=== PATIENT | female | born 1985 | race Hispanic/Latino ===

== ENCOUNTER 2017-05-24 23:53 | Emergency (ER) | payer SELFPAY ==
[2017-05-25] MEDS ORDERED: METHYLPREDNISOLONE 125 MG INJ ONE (00:53)
[2017-05-25] MEDS ORDERED: FAMOTIDINE 20 MG/2 ML VIAL IV ONE (00:54)
[2017-05-25] MEDS ORDERED: DIPHENHYDRAMINE 50 MG/ML VIAL ONE (00:54)
--- NOTE | 2017-05-25 01:37 | EDPHYS ---
Physician Documentation [facility] Name: Kristy Amor Age: 31 yrs Sex: Female : 1985 Arrival Date: 05/24/2017 Time: 23:57 Bed 7 Private MD: ED Physician Reji Sena HPI: 05/25 01:30 This 31 yrs old Female presents to ER via Ambulatory with complaints of jr8 Allergic Reaction. 01:30 The patient presents with itching, rash. Onset: The symptoms/episode began/occurred jr8 acutely, today. Associated signs and symptoms: The patient has no apparent associated signs or symptoms. Possible causes: antibiotics, penicillin. At home the patient or guardian has treated the symptoms with Benadryl. Severity of symptoms: At their worst the symptoms were mild in the emergency department the symptoms are unchanged. The patient has not experienced similar symptoms in the past. The patient has not recently seen a physician. Patient stated that she was started on PCN two days ago for infection. Stated that today started to have rash on neck and chest along with had that was itching. 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 - Social history:: Smoking status: Patient/guardian denies using tobacco, never smoked. ROS: 01:30 Eyes: Negative for injury, pain, redness, and discharge, ENT: Negative for injury, jr8 pain, and discharge, Neck: Negative for injury, pain, and swelling, Cardiovascular: Negative for chest pain, palpitations, and edema, Respiratory: Negative for shortness of breath, cough, wheezing, and pleuritic chest pain, Abdomen/GI: Negative for abdominal pain, nausea, vomiting, diarrhea, and constipation, Back: Negative for injury and pain, MS/Extremity: Negative for injury and deformity, Neuro: Negative for headache, weakness, numbness, tingling, and seizure. 01:30 Skin: Positive for rash. Exam: 01:30 Eyes: Pupils equal round and reactive to light, extra-ocular motions intact. Lids and jr8 lashes normal. Conjunctiva and sclera are non-icteric and not injected. Cornea within normal limits. Periorbital areas with no swelling, redness, or edema. ENT: Nares patent. No nasal discharge, no septal abnormalities noted. Tympanic membranes are normal and external auditory canals are clear. Oropharynx with no redness, swelling, or masses, exudates, or evidence of obstruction, uvula midline. Mucous membranes moist. Neck: Trachea midline, no thyromegaly or masses palpated, and no cervical lymphadenopathy. Supple, full range of motion without nuchal rigidity, or vertebral point tenderness. No Meningismus. Cardiovascular: Regular rate and rhythm with a normal S1 and S2. No gallops, murmurs, or rubs. Normal PMI, no JVD. No pulse deficits. Respiratory: Lungs have equal breath sounds bilaterally, clear to auscultation and percussion. No rales, rhonchi or wheezes noted. No increased work of breathing, no retractions or nasal flaring. Abdomen/GI: Soft, non-tender, with normal bowel sounds. No distension or tympany. No guarding or rebound. No evidence of tenderness throughout. Back: No spinal tenderness. No costovertebral tenderness. Full range of motion. MS/ Extremity: Pulses equal, no cyanosis. Neurovascular intact. Full, normal range of motion. Neuro: Awake and alert, GCS 15, oriented to person, place, time, and situation. Cranial nerves II-XII grossly intact. Motor strength 5/5 in all extremities. Sensory grossly intact. Cerebellar exam normal. Normal gait. 01:30 Skin: rash a mild rash is noted, rash can be described as urticarial, on the chest and neck. Vital Signs: 00:06 BP 116 / 76; Pulse 60; Resp 17; Temp 97.4; Pulse Ox 100% ; Weight 63.5 kg; Height 5 ft. tl1 0 in. (152.40 cm); Pain 0/10; 01:07 BP 122 / 88; Pulse 62; Resp 14; Pulse Ox 100% ; Pain 0/10; ao 00:06 Body Mass Index 27.34 (63.50 kg, 152.40 cm) tl1 MDM: 00:11 Patient medically screened. jr8 01:30 Data reviewed: vital signs, nurses notes, and as a result, I will discharge patient. jr8 Data interpreted: Pulse oximetry: on room air is 100 %. Interpretation: normal. Counseling: I had a detailed discussion with the patient and/or guardian regarding: the historical points, exam findings, and any diagnostic results supporting the discharge/admit diagnosis, the need for outpatient follow up, a family practitioner, to return to the emergency department if symptoms worsen or persist or if there are any questions or concerns that arise at home. Response to treatment: the patient's symptoms have markedly improved after treatment. ED course: Discussed with patient to stop PCN. Will put her on something different. Will send home on steroids. Benadryl as needed for rash and itching. To f/u with 48 hours to insure getting better. If worse to come back to ED . 05/25 00:56 Order name: Urine Dipstick--Ancillary (enter results) em1 05/25 00:56 Order name: Urine --Ancillary (enter results) em1 05/25 00:30 Order name: IV; Complete Time: 00:53 jr8 Administered Medications: 00:52 Drug: SOLU-Medrol 125 mg Route: IVP; Site: right antecubital; ao 02:04 Follow up: Response: No adverse reaction ao 00:52 Drug: Pepcid 20 mg Route: IVP; Site: right antecubital; ao 02:03 Follow up: Response: No adverse reaction ao 00:52 Drug: Benadryl 25 mg Route: IVP; Site: right antecubital; ao 02:03 Follow up: Response: No adverse reaction; Other; Rushes apear to be less ao Disposition: 07:19 Co-signature as Attending Physician, Reji Sena MD I agree with the assessment and kevin plan of care. Disposition: 05/25/17 01:36 Discharged to Home. Impression: Allergic Reaction. - Condition is Stable. - Discharge Instructions: Anaphylactic Reaction. - Prescriptions for Zithromax Z- Xu 250 mg Oral Tablet - take 1 tablet by ORAL route as directed for 5 days Day 1 - take two (2) tablets one time. Day 2, 3, 4 , 5 take one (1) tablet once daily.; 6 tablet. Prednisone 20 mg Oral Tablet - take 2 tablet by ORAL route once daily for 5 days; 10 tablet. - Medication Reconciliation Form, Thank You Letter, Antibiotic Education, Prescription Opioid Use, Work release form form. - Follow up: Private Physician; When: 1 - 2 days; Reason: Recheck today's complaints, Continuance of care, Re-evaluation by your physician. - Problem is new. - Symptoms have improved. Signatures: Dispatcher [employer] EDReji Hanson MD MD cha Roszak, Josh, PA PA jr8 Leslie Parrish RN RN tl1 Manjeet Joe RN RN ao
--- NOTE | 2017-05-25 01:37 | ER ---
Nurse's Notes [facility] Name: Kristy Amor Age: 31 yrs Sex: Female : 1985 Arrival Date: 05/24/2017 Time: 23:57 Bed 7 Private MD: Diagnosis: Allergic Reaction Presentation: 05/25 00:02 Presenting complaint: Patient states: I have had a cold since Tuesday and have been tl1 taking over the counter medications. yesterday I started taking amoxicillin I bought in [place]. Tonight I started getting a rash on my neck and my throat got real scratchy. Transition of care: patient was not received from another setting of care. Onset: The symptoms/episode began/occurred gradually. Anaphylaxis evaluation, no signs or symptoms of anaphylaxis were noted. Onset of symptoms was May 25, 2017. Care prior to arrival: Medication(s) given: benadryl 50mg. 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 - Social history:: Smoking status: Patient/guardian denies using tobacco, never smoked. Screenin:01 Abuse screen: Denies threats or abuse. Denies injuries from another. Nutritional ao screening: No deficits noted. Tuberculosis screening: No symptoms or risk factors identified. Fall Risk None identified. Assessment: 00:15 General: Appears in no apparent distress. comfortable, Behavior is calm, cooperative, ao appropriate for age. Pain: Denies pain. Neuro: Level of Consciousness is awake, alert, obeys commands, Oriented to person, place, time, situation, Appropriate for age Moves all extremities. Speech is normal, Facial symmetry appears normal, Pupils are PERRLA. Cardiovascular: Reports shortness of breath, Denies chest pain, lightheadedness, Heart tones S1 S2 Capillary refill < 3 seconds Patient's skin is warm and dry. Respiratory: Airway is patent Trachea midline Respiratory effort is even, unlabored, Respiratory pattern is regular, symmetrical, Breath sounds are clear bilaterally. GI: No signs and/or symptoms were reported involving the gastrointestinal system. Abdomen is flat. : No signs and/or symptoms were reported regarding the genitourinary system. EENT: No signs and/or symptoms were reported regarding the EENT system. Derm: No signs and/or symptoms reported regarding the dermatologic system. Musculoskeletal: No signs and/or symptoms reported regarding the musculoskeletal system. 01:07 Reassessment: Patient appears in no apparent distress at this time. Patient and/or ao family updated on plan of care and expected duration. Pain level reassessed. Patient is alert, oriented x 3, equal unlabored respirations, skin warm/dry/pink. Patient is been monitor. Patient shows no SS of distress at this moment. Vital Signs: 00:06 BP 116 / 76; Pulse 60; Resp 17; Temp 97.4; Pulse Ox 100% ; Weight 63.5 kg; Height 5 ft. tl1 0 in. (152.40 cm); Pain 0/10; 01:07 BP 122 / 88; Pulse 62; Resp 14; Pulse Ox 100% ; Pain 0/10; ao 00:06 Body Mass Index 27.34 (63.50 kg, 152.40 cm) tl1 ED Course: 05/24 23:57 Patient arrived in ED. es 03 00:05 Triage completed. tl1 00:07 Arm band placed on right wrist. tl1 00:11 Carlos Akhtar PA is PHCP. jr8 00:11 Reji Sena MD is Attending Physician. jr8 00:15 Manjeet Joe, BEATRIZ is Primary Nurse. ao 00:40 Inserted saline lock: 22 gauge in right antecubital area, using aseptic technique. ao 02:02 Patient has correct armband on for positive identification. Pulse ox on. NIBP on. ao 02:02 No provider procedures requiring assistance completed. IV discontinued, intact, ao bleeding controlled, No redness/swelling at site. Pressure dressing applied. 02:04 Urine Dipstick--Ancillary (enter results) Sent. ao 02:04 Urine --Ancillary (enter results) Sent. ao Administered Medications: 00:52 Drug: SOLU-Medrol 125 mg Route: IVP; Site: right antecubital; ao 02:04 Follow up: Response: No adverse reaction ao 00:52 Drug: Pepcid 20 mg Route: IVP; Site: right antecubital; ao 02:03 Follow up: Response: No adverse reaction ao 00:52 Drug: Benadryl 25 mg Route: IVP; Site: right antecubital; ao 02:03 Follow up: Response: No adverse reaction; Other; Rushes apear to be less ao Outcome: 01:36 Discharge ordered by MD. joshi 02:02 Discharged to home ambulatory. ao 02:02 Condition: stable 02:02 Discharge instructions given to patient, Instructed on discharge instructions, follow up and referral plans. Demonstrated understanding of instructions, follow-up care, medications, Prescriptions given X 2. 02:03 Patient left the ED. ao Signatures: Jenny Roque Josh, PA PA jr8 Leslie Parrish RN RN tl1 Manjeet Joe RN RN ao
[2017-05-25 02:11] VITALS: TEMP 97.4; O2SAT 100
[2017-05-25 02:12] VITALS: BP 122/88
[2017-05-25 02:51] LABS: Urine Blood NEGATIVE (NEG); Urine Glucose NEGATIVE (NEG); Urine Protein NEGATIVE (NEG); Urine pH 6.5 (5.0-7.0)
== END 2017-05-25 02:03 | disposition home or self-care (01) ==
LOC: ER 23:53
DX: R21 Rash and other nonspecific skin eruption (principal)
CPT/HCPCS: 81003; 81025; 96374; 96375; 99284; J2930

== ENCOUNTER 2017-11-16 21:59 | Emergency (ER) | payer SELFPAY ==
[2017-11-17] MEDS ORDERED: ONDANSETRON 4 MG/2 ML VIAL ONE (00:31)
[2017-11-17] MEDS ORDERED: MORPHINE 4 MG/ML SYR ONE (00:31)
[2017-11-17 00:34] LABS: Absolute Monocytes 0.5 K/uL (0.1-1.3); Absolute Neutrophil 8.4 K/uL (1.8-8.0); Basophils % 0.7 % (0-1.3); Eosinophils % 0.5 % (0-4.4); Hematocrit 43.2 % (36.0-45.0); Lymphocytes % 24.8 % (15.3-44.8); MCH 34.1 pg (27.0-35.0); MCV 96.1 fL (80-100); MPV 10.2 fL (7.6-11.3); Monocytes % 4.4 % (3.3-12.3)
[2017-11-17] MEDS ORDERED: MEPERIDINE HCL 50 MG/ML AMP ONE ×2 (01:08→02:13)
[2017-11-17 01:26] LABS: Blood Morphology Comment NOT SEEN (NOT SEEN); Platelet Estimate ADEQ; Urine White Blood Cell Casts OK
[2017-11-17 01:53] LABS: Urine Blood NEGATIVE (NEG); Urine Glucose NEGATIVE (NEG); Urine Protein NEGATIVE (NEG); Urine Specific Gravity 1.025 (1.005-1.030); Urine pH 6.5 (5.0-7.0)
--- NOTE | 2017-11-17 03:42 | ER ---
Nurse's Notes [facility] Name: Kristy Amor Age: 32 yrs Sex: Female : 1985 Arrival Date: 11/16/2017 Time: 22:04 Bed 15 Private MD: Diagnosis: Abdominal and pelvic pain Presentation: 11/16 22:12 Presenting complaint: Patient states: she is nauseous and has been vomiting the last bb couple of hours with sharp pain in her back pt states she has had pancreatitis in the past but this is different. Transition of care: patient was not received from another setting of care. Onset of symptoms was November 16, 2017. Risk Assessment: Do you want to hurt yourself or someone else? Patient reports no desire to harm self or others. Initial Sepsis Screen: Does the patient meet any 2 criteria? No. Patient's initial sepsis screen is negative. Does the patient have a suspected source of infection? No. Patient's initial sepsis screen is negative. Care prior to arrival: None. 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 - Social history:: Smoking status: Patient uses tobacco products, denies chronic smoking, but will smoke occasionally, Patient uses alcohol, occasionally. Patient/guardian denies using street drugs. - Ebola Screening: : No symptoms or risks identified at this time. Screenin:38 Abuse screen: Denies threats or abuse. Nutritional screening: No deficits noted. jd3 Tuberculosis screening: No symptoms or risk factors identified. Fall Risk Ambulatory Aid- None/Bed Rest/Nurse Assist (0 pts). Gait- Normal/Bed Rest/Wheelchair (0 pts) Mental Status- Oriented to own ability (0 pts). Total Mena Fall Scale indicates No Risk (0-24 pts). Assessment: 22:34 General: Appears uncomfortable, Behavior is calm, cooperative, appropriate for age. jd3 Pain: Complains of pain in back Quality of pain is described as sharp. Neuro: Level of Consciousness is awake, alert, obeys commands, Oriented to person, place, time, situation. Cardiovascular: Heart tones S1 S2 present Capillary refill < 3 seconds Patient's skin is warm and dry. Respiratory: Reports pain with respiration Airway is patent Respiratory effort is even, unlabored, Respiratory pattern is regular, symmetrical, Breath sounds are clear bilaterally. GI: Abdomen is round non-distended, Bowel sounds present X 4 quads. Abd is soft and non tender X 4 quads. Reports nausea, vomiting, Patient currently denies constipation, diarrhea. : No signs and/or symptoms were reported regarding the genitourinary system. EENT: No signs and/or symptoms were reported regarding the EENT system. Derm: Skin is intact, Skin is dry, Skin is normal, Skin temperature is warm. Musculoskeletal: Circulation, motion, and sensation intact. Range of motion: intact in all extremities. 23:32 Reassessment: Pt complaining of nausea and pain, provider notified, see MAR for orders. jb4 11/17 00:37 Reassessment: Patient is alert, oriented x 3, equal unlabored respirations, skin lp1 warm/dry/pink. Reassessment: Patient aware of pending lab results. General: Appears in no apparent distress. 00:50 Reassessment: Pt complaining of sharp abdominal pain provider notified, see MAR for jb4 orders. 01:49 Reassessment: Pt complaining of sharp abdominal pain. Provider notified, see MAR for jb4 order.s. 02:18 Reassessment: taken to CT. jb4 02:33 Reassessment: Pt is back from CT. jb4 03:18 Reassessment: Patient appears in no apparent distress at this time. Patient and/or jb4 family updated on plan of care and expected duration. Pain level reassessed. Pt resting comfortably in bed with no s/s of distress. 04:12 Reassessment: Patient appears in no apparent distress at this time. Patient and/or jb4 family updated on plan of care and expected duration. Pain level reassessed. Patient is alert, oriented x 3, equal unlabored respirations, skin warm/dry/pink. D/c \T\ F/u to pt, denies question or concerns. Vital Signs: 11/16 22:13 BP 121 / 80; Pulse 67; Resp 16 S; Temp 98.6(O); Pulse Ox 99% on R/A; Weight 64.86 kg bb (R); Height 5 ft. 0 in. (152.40 cm) (R); Pain 7/10; 11/17 00:00 BP 110 / 79; Pulse 74; Resp 16; Pulse Ox 98% on R/A; lp1 01:06 BP 118 / 83; Pulse 85; Resp 18; Pulse Ox 100% on R/A; jb4 02:00 BP 115 / 78; Pulse 79; Resp 18; Pulse Ox 100% on R/A; jb4 03:00 BP 104 / 80; Pulse 63; Resp 18; Pulse Ox 98% on R/A; jb4 03:45 BP 103 / 67; Pulse 57; Resp 18; Pulse Ox 98% on R/A; jb4 11/16 22:13 Body Mass Index 27.93 (64.86 kg, 152.40 cm) bb ED Course: 11/16 22:04 Patient arrived in ED. es 22:13 Triage completed. bb 22:13 Arm band placed on Patient placed in an exam room, on a stretcher, on pulse oximetry. bb 22:13 Pulse ox on. NIBP on. jb4 22:38 Patient has correct armband on for positive identification. Bed in low position. Call jd3 light in reach. Side rails up X 1. Adult w/ patient. 22:52 Carlos Akhtar PA is PHCP. jr8 22:52 Reji Sena MD is Attending Physician. jr8 22:57 Otoniel Slade, RN is Primary Nurse. jb4 23:55 Inserted saline lock: 22 gauge in right antecubital area, using aseptic technique. lp1 Blood collected. 11/17 00:37 Jessica Deshpande, RN is Primary Nurse. lp1 02:25 CT completed. Patient tolerated procedure well. Patient moved to CT via wheelchair. Patient moved back from CT. 02:26 CT Abd/Pelvis - W/Contrast In Process Unspecified. EDMS 04:15 No provider procedures requiring assistance completed. IV discontinued, intact, jb4 bleeding controlled. Administered Medications: 00:36 Drug: morphine 4 mg Route: IVP; Site: right antecubital; lp1 03:13 Follow up: Response: No adverse reaction; Pain is unchanged, physician notified jb4 00:36 Drug: Zofran 4 mg Route: IVP; Site: right antecubital; lp1 03:13 Follow up: Response: No adverse reaction; Nausea is decreased jb4 01:00 Drug: Demerol 25 mg Route: IVP; Site: right antecubital; jb4 03:09 Follow up: Response: No adverse reaction; Pain is unchanged, physician notified jb4 02:16 Drug: Demerol 50 mg Route: IVP; Site: right antecubital; jb4 03:09 Follow up: Response: No adverse reaction; Pain is decreased jb4 04:11 Drug: GI Cocktail without - (Maalox Suspension 30 ml, Lidocaine Liquid 2 % 15 jb4 ml) Route: PO; 04:11 Follow up: Response: No adverse reaction; Pain is decreased jb4 Outcome: 03:42 Discharge ordered by . madelyn 04:16 Discharged to home ambulatory. jb4 04:16 Condition: stable 04:16 Discharge instructions given to patient, Instructed on discharge instructions, follow up and referral plans. medication usage, Demonstrated understanding of instructions, follow-up care, medications, Prescriptions given X 2. 04:17 Patient left the ED. jb4 Signatures: Dispatcher [employer] EDJenny Pink Ervin eh Ballard, Brenda, RN RN bb Jessica Deshpande RN RN lp1 Carlos Akhtar PA PA jr8 Otoniel Slade RN RN jb4 Zach Sanford RN RN jd3 Corrections: (The following items were deleted from the chart) 00:38 09/12 23:41 Reassessment: rosalind lp1 11/17 03:09 02:55 Response: No adverse reaction jb4 jb4 03:13 02:05 Response: No adverse reaction jb4 jb4 03:13 02:06 Response: No adverse reaction jb4 jb4 03:14 02:05 Response: No adverse reaction jb4 jb4 03:24 03:00 BP 108 / 39; Pulse 75bpm; Resp 18bpm; Pulse Ox 100% RA; jb4 jb4
--- NOTE | 2017-11-17 03:42 | EDPHYS ---
Physician Documentation [facility] Name: Kristy Amor Age: 32 yrs Sex: Female : 1985 Arrival Date: 11/16/2017 Time: 22:04 Bed 15 Private MD: ED Physician Reji Sena HPI: 11/16 23:38 This 32 yrs old Female presents to ER via Ambulatory with complaints of jr8 Nausea/Vomiting, Back Pain. 23:38 The patient presents to the emergency department with nausea, vomiting. Onset: The jr8 symptoms/episode began/occurred acutely, today. Possible causes: unknown. The symptoms are aggravated by nothing. The symptoms are alleviated by nothing. Associated signs and symptoms: Pertinent positives: abdominal pain, back pain. Severity of symptoms: At their worst the symptoms were moderate. The patient has not experienced similar symptoms in the past. The patient has not recently seen a physician. 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 - Social history:: Smoking status: Patient uses tobacco products, denies chronic smoking, but will smoke occasionally, Patient uses alcohol, occasionally. Patient/guardian denies using street drugs. - Ebola Screening: : No symptoms or risks identified at this time. ROS: 23:38 Eyes: Negative for injury, pain, redness, and discharge, ENT: Negative for injury, jr8 pain, and discharge, Neck: Negative for injury, pain, and swelling, Cardiovascular: Negative for chest pain, palpitations, and edema, Respiratory: Negative for shortness of breath, cough, wheezing, and pleuritic chest pain, MS/Extremity: Negative for injury and deformity, Skin: Negative for injury, rash, and discoloration, Neuro: Negative for headache, weakness, numbness, tingling, and seizure. 23:38 Abdomen/GI: Positive for abdominal pain, nausea and vomiting, Negative for diarrhea, constipation, abdominal cramps, abdominal distension, anorexia, dysphagia, hematemesis, black/tarry stool, rectal pain, rectal bleeding, bowel incontinence, flatulence. 23:38 Back: Positive for pain at rest, Negative for pain with movement, radiated pain. Exam: 23:38 Eyes: Pupils equal round and reactive to light, extra-ocular motions intact. Lids and jr8 lashes normal. Conjunctiva and sclera are non-icteric and not injected. Cornea within normal limits. Periorbital areas with no swelling, redness, or edema. ENT: Nares patent. No nasal discharge, no septal abnormalities noted. Tympanic membranes are normal and external auditory canals are clear. Oropharynx with no redness, swelling, or masses, exudates, or evidence of obstruction, uvula midline. Mucous membranes moist. Neck: Trachea midline, no thyromegaly or masses palpated, and no cervical lymphadenopathy. Supple, full range of motion without nuchal rigidity, or vertebral point tenderness. No Meningismus. Cardiovascular: Regular rate and rhythm with a normal S1 and S2. No gallops, murmurs, or rubs. Normal PMI, no JVD. No pulse deficits. Respiratory: Lungs have equal breath sounds bilaterally, clear to auscultation and percussion. No rales, rhonchi or wheezes noted. No increased work of breathing, no retractions or nasal flaring. Abdomen/GI: Soft, non-tender, with normal bowel sounds. No distension or tympany. No guarding or rebound. No evidence of tenderness throughout. Back: No spinal tenderness. No costovertebral tenderness. Full range of motion. Skin: Warm, dry with normal turgor. Normal color with no rashes, no lesions, and no evidence of cellulitis. MS/ Extremity: Pulses equal, no cyanosis. Neurovascular intact. Full, normal range of motion. Neuro: Awake and alert, GCS 15, oriented to person, place, time, and situation. Cranial nerves II-XII grossly intact. Motor strength 5/5 in all extremities. Sensory grossly intact. Cerebellar exam normal. Normal gait. Vital Signs: 22:13 BP 121 / 80; Pulse 67; Resp 16 S; Temp 98.6(O); Pulse Ox 99% on R/A; Weight 64.86 kg bb (R); Height 5 ft. 0 in. (152.40 cm) (R); Pain 7/10; 11/17 00:00 BP 110 / 79; Pulse 74; Resp 16; Pulse Ox 98% on R/A; lp1 01:06 BP 118 / 83; Pulse 85; Resp 18; Pulse Ox 100% on R/A; jb4 02:00 BP 115 / 78; Pulse 79; Resp 18; Pulse Ox 100% on R/A; jb4 03:00 BP 104 / 80; Pulse 63; Resp 18; Pulse Ox 98% on R/A; jb4 03:45 BP 103 / 67; Pulse 57; Resp 18; Pulse Ox 98% on R/A; jb4 11/16 22:13 Body Mass Index 27.93 (64.86 kg, 152.40 cm) bb MDM: 11/16 22:52 Patient medically screened. [facility] 11/17 03:42 Data reviewed: vital signs, nurses notes, lab test result(s), radiologic studies, CT jr8 scan. Data interpreted: Pulse oximetry: on room air is 98 %. Interpretation: normal. Counseling: I had a detailed discussion with the patient and/or guardian regarding: the historical points, exam findings, and any diagnostic results supporting the discharge/admit diagnosis, lab results, radiology results, the need for outpatient follow up, a family practitioner, to return to the emergency department if symptoms worsen or persist or if there are any questions or concerns that arise at home. Response to treatment: the patient's symptoms have markedly improved after treatment. 11/16 23:37 Order name: Basic Metabolic Panel; Complete Time: 00:33 11/16 23:37 Order name: CBC with Diff; Complete Time: 01:34 11/16 23:37 Order name: Creatinine for Radiology; Complete Time: 00:33 11/16 23:37 Order name: Hepatic Function; Complete Time: 00:33 11/16 23:37 Order name: Lipase; Complete Time: 00:33 11/17 00:07 Order name: Urine Dipstick--Ancillary (enter results); Complete Time: 01:54 mt 11/17 00:07 Order name: Urine --Ancillary (enter results); Complete Time: 01:54 mt 11/17 00:45 Order name: CBC Smear Scan; Complete Time: 01:34 EDLA 11/17 01:54 Order name: CT Abd/Pelvis - W/Contrast [facility] 11/16 23:37 Order name: Urine Test (obtain specimen); Complete Time: 00:31 11/16 23:37 Order name: IV Saline Lock; Complete Time: 00:04 11/16 23:37 Order name: Labs collected and sent; Complete Time: 00:11/16 23:37 Order name: Urine Dipstick-Ancillary (obtain specimen); Complete Time: 00:05 Administered Medications: 00:36 Drug: morphine 4 mg Route: IVP; Site: right antecubital; lp1 03:13 Follow up: Response: No adverse reaction; Pain is unchanged, physician notified jb4 00:36 Drug: Zofran 4 mg Route: IVP; Site: right antecubital; lp1 03:13 Follow up: Response: No adverse reaction; Nausea is decreased jb4 01:00 Drug: Demerol 25 mg Route: IVP; Site: right antecubital; jb4 03:09 Follow up: Response: No adverse reaction; Pain is unchanged, physician notified jb4 02:16 Drug: Demerol 50 mg Route: IVP; Site: right antecubital; jb4 03:09 Follow up: Response: No adverse reaction; Pain is decreased jb4 04:11 Drug: GI Cocktail without - (Maalox Suspension 30 ml, Lidocaine Liquid 2 % 15 jb4 ml) Route: PO; 04:11 Follow up: Response: No adverse reaction; Pain is decreased jb4 Disposition: 06:48 Co-signature as Attending Physician, Reji Sena MD I agree with the assessment and kevin plan of care. Disposition: 11/17/17 03:42 Discharged to Home. Impression: Abdominal and pelvic pain. - Condition is Stable. - Discharge Instructions: Abdominal Pain, Adult. - Prescriptions for Zofran 4 mg Oral Tablet - take 1 tablet by ORAL route every 12 hours As needed; 20 tablet. Tramadol 50 mg Oral Tablet - take 1 tablet by ORAL route every 8 hours as needed; 12 tablet. - Medication Reconciliation Form, Thank You Letter, Antibiotic Education, Prescription Opioid Use form. - Follow up: Private Physician; When: 2 - 3 days; Reason: Recheck today's complaints, Continuance of care, Re-evaluation by your physician. - Problem is new. - Symptoms have improved. Signatures: Dispatcher [employer] Reji Doherty MD MD cha Ballard, Brenda RN RN bb Jessica Deshpande RN RN lp1 Carlos Akhtar PA PA jr8 Otoniel Slade RN RN jb4 Corrections: (The following items were deleted from the chart) 04:17 03:42 11/17/2017 03:42 Discharged to Home. Impression: Abdominal and pelvic pain. jb4 Condition is Stable. Forms are Medication Reconciliation Form, Thank You Letter, Antibiotic Education, Prescription Opioid Use. Follow up: Private Physician; When: 2 - 3 days; Reason: Recheck today's complaints, Continuance of care, Re-evaluation by your physician. Problem is new. Symptoms have improved. jr8
[2017-11-17] MEDS ORDERED: LIDOCAINE VISCOUS 2% SOLN 15 ML UDC ONE (04:07)
[2017-11-17] MEDS ORDERED: MAGNE/ALUM HYDROXD 30 ML UCUP ONE (04:07)
[2017-11-17 04:33] VITALS: TEMP 98.6
[2017-11-17 04:38] VITALS: O2SAT 98
[2017-11-17 04:39] VITALS: BP 103/67
--- NOTE | 2017-11-17 07:58 | RAD REPORT ---
EXAM DESCRIPTION: CT - Abdomen Pelvis W Contrast - 11/17/2017 5:26 am CLINICAL HISTORY: Abdominal pain/right upper quadrant pain with vomiting COMPARISON: April 2017 TECHNIQUE: Computed axial tomography of the abdomen pelvis was obtained. 100 cc Isovue-300 was admin istered intravenously. Oral contrast was not requested which limits evaluation of bowel. Preliminary report was generated by [employer] and reviewed prior to this dictation All CT scans are performed using dose optimization technique as appropriate and may include automated exposure control or mA/KV adjustment according to patient size. FINDINGS: The liver, spleen, pancreas, adrenal and kidneys appear unremarkable. 1 centimeter left re nal cyst is noted. There is no evidence of diverticulitis. The appendix is normal. An 11 millimeter irregularly shaped right ovarian follicle is present. Significant free fluid is not noted IMPRESSION: No acute abnormality is displayed.
== END 2017-11-17 04:17 | disposition home or self-care (01) ==
LOC: ER 21:59
DX: R10.2 Pelvic and perineal pain (principal); Z72.0 Tobacco use
CPT/HCPCS: 36415; 74177; 80048; 80076; 81003; 81025; 83690; 85025; 96374; 96375; 99284; J2175; J2405; Q9967

== ENCOUNTER 2019-01-01 03:41 | Emergency (ER) | payer SELFPAY ==
[2019-01-01] MEDS ORDERED: DERMABOND SKIN ADHESIVE TOP ONE (04:22)
--- NOTE | 2019-01-01 04:48 | ER ---
Nurse's Notes [facility] Name: Kristy Amor Age: 33 yrs Sex: Female : 1985 Arrival Date: 01/01/2019 Time: 03:43 Bed 20 Private MD: Diagnosis: Laceration of lip and oral cavity without foreign body Presentation: 01/01 04:02 Presenting complaint: Patient states: she fell a couple of hours ago and lacerated her bb left upper lip while also receiving abrasions to her knees. Transition of care: patient was not received from another setting of care. Complicating Factors: There are no complicating factors for this patient. Onset of symptoms was January 01, 2019. Risk Assessment: Do you want to hurt yourself or someone else? Patient reports no desire to harm self or others. Initial Sepsis Screen: Does the patient meet any 2 criteria? No. Patient's initial sepsis screen is negative. Does the patient have a suspected source of infection? No. Patient's initial sepsis screen is negative. Care prior to arrival: None. 04:02 Method Of Arrival: Ambulatory bb 04:02 Acuity: KOLE 4 bb Triage Assessment: 03:53 General: Appears in no apparent distress. comfortable, Behavior is calm, cooperative, cc3 appropriate for age. Pain: Complains of pain in left cheek. 04:03 Injury Description: Laceration sustained to left upper lip is not bleeding, was bb sustained 2-4 hours ago. is bleeding a small amount. 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 - Social history:: Smoking status: Patient uses tobacco products, denies chronic smoking, but will smoke occasionally. - Ebola Screening: : No symptoms or risks identified at this time. Screenin:53 Abuse screen: Denies threats or abuse. Denies injuries from another. Nutritional cc3 screening: No deficits noted. Tuberculosis screening: No symptoms or risk factors identified. Fall Risk Ambulatory Aid- None/Bed Rest/Nurse Assist (0 pts). Gait- Normal/Bed Rest/Wheelchair (0 pts) Mental Status- Oriented to own ability (0 pts). Assessment: 03:53 Musculoskeletal: Circulation, motion, and sensation intact. Range of motion: intact in cc3 all extremities. Injury Description: Laceration sustained to left cheek is clean, superficial, 0.5 to 2.5 cm long, not bleeding, was sustained 2-4 hours ago. is bleeding a small amount. 04:45 Reassessment: Patient appears in no apparent distress at this time. Patient and/or cc3 family updated on plan of care and expected duration. Pain level reassessed. Patient is alert, oriented x 3, equal unlabored respirations, skin warm/dry/pink. Dr. Vasquez discharged the patient home with prescription given. No IV cannula in situ. Patient left ER vitally stable and ambulatory with her significant other. No valuables left in the patient's room. Patient denies pain at this time. Patient states feeling better. Patient states symptoms have improved. Vital Signs: 04:03 BP 109 / 55; Pulse 82; Resp 16 S; Temp 98.4(O); Pulse Ox 99% on R/A; Weight 63.5 kg bb (R); Height 5 ft. 0 in. (152.40 cm) (R); Pain 0/10; 04:03 Body Mass Index 27.34 (63.50 kg, 152.40 cm) 04:03 Lex (FACES) ED Course: 03:43 Patient arrived in ED. ag3 03:53 Maisha Gaviria is Primary Nurse. cc3 03:53 Patient has correct armband on for positive identification. Bed in low position. Call cc3 light in reach. Side rails up X 1. Pulse ox on. NIBP on. 04:02 Vic Vasquez MD is Attending Physician. tw4 04:03 Triage completed. bb 04:03 Arm band placed on Patient placed in an exam room, on a stretcher, on pulse oximetry. bb Family accompanied patient. 04:45 Assist provider with laceration repair on left cheek that was 2.5 cm. or less using cc3 Dermabond. Set up tray. Performed by Vic Vasquez MD Dressed with steri-strips Patient tolerated well. Patient did not have IV access during this emergency room visit. Administered Medications: 04:45 Drug: Motrin 800 mg Route: PO; cc3 04:46 Follow up: Response: No adverse reaction cc3 Outcome: 04:45 Discharged to home ambulatory, with family. cc3 04:45 Condition: stable 04:45 Discharge instructions given to patient, Instructed on discharge instructions, follow up and referral plans. medication usage, Demonstrated understanding of instructions, follow-up care, medications, Prescriptions given X 1. 04:47 Discharge ordered by . tw4 04:59 Patient left the ED. cc3 Signatures: Mariaelena Hernández RN RN Vic Rebolledo MD MD tw4 Maisha Gaviria cc3 Betina Solitario 3
[2019-01-01] MEDS ORDERED: IBUPROFEN 400 MG TAB ONE (04:50)
--- NOTE | 2019-01-01 05:01 | EDPHYS ---
Physician Documentation [facility] Name: Kristy Amor Age: 33 yrs Sex: Female : 1985 Arrival Date: 01/01/2019 Time: 03:43 Bed 20 Private MD: ED Physician Vic Vasquez HPI: 01/01 04:50 This 33 yrs old Female presents to ER via Ambulatory with complaints of tw4 Laceration To Lip. 04:50 Details of fall: The patient fell from an upright position. Details of fall: The tw4 patient fell from an upright position, while standing, while walking. Onset: The symptoms/episode began/occurred today. Associated injuries: The patient sustained left cheek, laceration, 2 cm(s). Severity of symptoms: At their worst the symptoms were mild, in the emergency department the symptoms are unchanged. The patient has not experienced similar symptoms in the past. 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 - Social history:: Smoking status: Patient uses tobacco products, denies chronic smoking, but will smoke occasionally. - Ebola Screening: : No symptoms or risks identified at this time. ROS: 04:50 Constitutional: Negative for fever, chills, and weight loss, Eyes: Negative for injury, tw4 pain, redness, and discharge, ENT: Negative for injury, pain, and discharge, Cardiovascular: Negative for chest pain, palpitations, and edema, Respiratory: Negative for shortness of breath, cough, wheezing, and pleuritic chest pain, Abdomen/GI: Negative for abdominal pain, nausea, vomiting, diarrhea, and constipation, Back: Negative for injury and pain, MS/Extremity: Negative for injury and deformity, Skin: Negative for injury, rash, and discoloration. Exam: 04:50 Constitutional: This is a well developed, well nourished patient who is awake, alert, tw4 and in no acute distress. Head/Face: Normocephalic, atraumatic. Chest/axilla: Normal chest wall appearance and motion. Nontender with no deformity. No lesions are appreciated. Cardiovascular: Regular rate and rhythm with a normal S1 and S2. No gallops, murmurs, or rubs. Normal PMI, no JVD. No pulse deficits. Respiratory: Lungs have equal breath sounds bilaterally, clear to auscultation and percussion. No rales, rhonchi or wheezes noted. No increased work of breathing, no retractions or nasal flaring. Abdomen/GI: Soft, non-tender, with normal bowel sounds. No distension or tympany. No guarding or rebound. No evidence of tenderness throughout. Back: No spinal tenderness. No costovertebral tenderness. Full range of motion. MS/ Extremity: Pulses equal, no cyanosis. Neurovascular intact. Full, normal range of motion. Neuro: Awake and alert, GCS 15, oriented to person, place, time, and situation. Cranial nerves II-XII grossly intact. Motor strength 5/5 in all extremities. Sensory grossly intact. Cerebellar exam normal. Normal gait. Vital Signs: 04:03 BP 109 / 55; Pulse 82; Resp 16 S; Temp 98.4(O); Pulse Ox 99% on R/A; Weight 63.5 kg bb (R); Height 5 ft. 0 in. (152.40 cm) (R); Pain 0/10; 04:03 Body Mass Index 27.34 (63.50 kg, 152.40 cm) bb 04:03 Lane-Parker (FACES) bb Laceration: 04:48 Wound Repair of 2cm ( 0.8in ) subcutaneous laceration to left cheek. Distal tw4 neuro/vascular/tendon intact. Wound prep: Simple cleansing with hibiclenz by nurse. Skin closed with dermabond and steristrips no sutures Adhesive skin closure using Dermabond. MDM: 04:02 Patient medically screened. tw4 04:48 Data reviewed: vital signs, nurses notes. tw4 04:50 Counseling: I had a detailed discussion with the patient and/or guardian regarding: the tw4 historical points, exam findings, and any diagnostic results supporting the discharge/admit diagnosis. Special discussion: Based on the patient's history, exam and DX evaluation, there is no indication for emergent intervention or inpatient TX. It is understood by the patient/guardian that if the SXs persist or worsen they need to return immediately for re-evaluation. I discussed with the patient/guardian in detail that at this point there is no indication for admission to the hospital. It is understood, however, that if the symptoms persist or worsen the patient needs to return immediately for re-evaluation. Administered Medications: 04:45 Drug: Motrin 800 mg Route: PO; cc3 04:46 Follow up: Response: No adverse reaction cc3 Disposition: 01/01/19 04:47 Discharged to Home. Impression: Laceration of lip and oral cavity without foreign body. - Condition is Stable. - Discharge Instructions: Facial or Scalp Contusion, Facial Laceration, [id number]. - Prescriptions for Ibuprofen 800 mg Oral Tablet - take 1 tablet by ORAL route every 8 hours As needed take with food; 30 tablet. - Medication Reconciliation Form, Thank You Letter, Antibiotic Education, Prescription Opioid Use, Work release form form. - Follow up: Private Physician; When: Upon discharge from the Emergency Department; Reason: Recheck today's complaints, Continuance of care. - Problem is new. - Symptoms have improved. Signatures: Mariaelena Hernández, RN RN Vic Rebolledo MD MD tw4 Maisha Gaviria cc3 Corrections: (The following items were deleted from the chart) 04:59 04:47 01/01/2019 04:47 Discharged to Home. Impression: Laceration of lip and oral cc3 cavity without foreign body. Condition is Stable. Forms are Medication Reconciliation Form, Thank You Letter, Antibiotic Education, Prescription Opioid Use. Follow up: Private Physician; When: Upon discharge from the Emergency Department; Reason: Recheck today's complaints, Continuance of care. Problem is new. Symptoms have improved. tw4
[2019-01-01 05:05] VITALS: BP 109/55; TEMP 98.4; O2SAT 99
== END 2019-01-01 04:59 | disposition home or self-care (01) ==
LOC: ER 03:41
PROC: 0JQ10ZZ Repair Face Subcutaneous Tissue and Fascia, Open Approach (ICD-10-PCS; principal; 2019-01-01)
DX: S01.511A Laceration without foreign body of lip, initial encounter (principal); W01.0XXA Fall on same level from slipping, tripping and stumbling without subsequent striking against object, initial encounter; Y93.9 Activity, unspecified; Y92.9 Unspecified place or not applicable; Z72.0 Tobacco use
CPT/HCPCS: 99284